=== PATIENT | female | born 1955 | race Caucasian/White ===

== ENCOUNTER → 2017-03-05 | Outpatient (CLI) | payer BC | LOC: MAMMO 09:33 | DX: Z12.31 Encounter for screening mammogram for malignant neoplasm of breast (principal); R92.2 Inconclusive mammogram | CPT/HCPCS: G0202 ==

== ENCOUNTER → 2019-10-27 | Outpatient (CLI) | payer BC | LOC: MAMMO 11:20 | DX: Z12.31 Encounter for screening mammogram for malignant neoplasm of breast (principal) ==

== ENCOUNTER → 2020-07-19 | Outpatient (CLI) | payer BC | LOC: RAD 12:57 | PROVIDERS: Student in an Organized Health Care Education/Training Program | DX: E04.9 Nontoxic goiter, unspecified (principal) | CPT/HCPCS: Q9967 ==

== ENCOUNTER → 2021-05-23 | Outpatient (CLI) | payer BC | LOC: MAMMO 08:30 | DX: Z12.31 Encounter for screening mammogram for malignant neoplasm of breast (principal) ==

== ENCOUNTER → 2022-02-26 | Day surgery (SDC) | payer BC | END | disposition home or self-care (01) | LOC: MSO 07:32 | DX: Z12.11 Encounter for screening for malignant neoplasm of colon (principal); K63.5 Polyp of colon | CPT/HCPCS: 00811; J2704; J7120 ==